=== PATIENT | female | born 1990 | race African-American/Black ===

== ENCOUNTER 2016-04-29 14:35 | Emergency (ER) | payer OTHER ==
[~2016-04-29] VITALS: Ht 175.3 cm; Wt 129.3 kg
[~2016-04-29 14:35] MED LIST: CEPH-264 PO; HYDR-971 PO; IBUP-1007 PO; NITR100C62 PO
[2016-04-29 14:43] VITALS: BP 114/59
[2016-04-29] MEDS ORDERED: D-ME118S2 PO (14:53)
--- NOTE | 2016-04-29 14:53 | PHYS DOC ---
Past Medical History Past Medical History: Cancer, Other Additional Past Medical Histor: MISCARRIAGE, DIZZINESS, BONE CA RLE Past Surgical History: No Surgical History Additional Past Surgical Histo: tumor right ankle Alcohol Use: None Drug Use: None Adult General Chief Complaint Chief Complaint: COUGH HPI HPI Patient is a 25 year old female presents emergency room with a complaint of a nonproductive cough for several weeks. Patient states that she feels trickling throat which causes her to cough. She states that she has difficulty swallowing solids such as pills even though she has no problems swallowing foods. She denies any history of cardiopulmonary disease. She is a smoker. Her daughter in the home is ill with similar symptoms but this is after she became ill. She denies any fevers or chills. Review of Systems Review of Systems Constitutional: Denies fever or chills [] Eyes: Denies change in visual acuity, redness, or eye pain [] HENT: Denies nasal congestion or sore throat [] Respiratory: Denies cough or shortness of breath [] Cardiovascular: No additional information not addressed in HPI [] GI: Denies abdominal pain, nausea, vomiting, bloody stools or diarrhea [] : Denies dysuria or hematuria [] Musculoskeletal: Denies back pain or joint pain [] Integument: Denies rash or skin lesions [] Neurologic: Denies headache, focal weakness or sensory changes [] Endocrine: Denies polyuria or polydipsia [] Allergies Allergies Allergies Coded Allergies Type Severity Reaction Last Updated Verified No Known Drug Allergies 10/14/14 No Physical Exam Physical Exam Constitutional: Well developed, well nourished, no acute distress, non-toxic appearance. [] HENT: Normocephalic, atraumatic, bilateral external ears normal, oropharynx moist, no oral exudates, scant amount of clear rhinorrhea diarrhea and bilateral naris. Posterior oropharynx is without any erythema, tonsillar swelling, peritonsillar swelling or uvular deviation. There are no exudative plaques on the tonsils. Eyes: PERRLA, EOMI, conjunctiva normal, no discharge. [] Neck: Normal range of motion, no tenderness, supple, no stridor. There are no palpable soft tissue masses. Patient is able to swallow without difficulty. Cardiovascular:Heart rate regular rhythm, no murmur [] Lungs & Thorax: Bilateral breath sounds clear to auscultation Abdomen: Bowel sounds normal, soft, no tenderness, no masses, no pulsatile masses. [] Skin: Warm, dry, no erythema, no rash. [] Back: No tenderness, no CVA tenderness. [] Extremities: No tenderness, no cyanosis, no clubbing, ROM intact, no edema. [] Neurologic: Alert and oriented X 3, normal motor function, normal sensory function, no focal deficits noted. [] Psychologic: Affect normal, judgement normal, mood normal. [] Current Patient Data Vital Signs Vital Signs Date Time Temp Pulse Resp B/P Pulse Ox O2 Delivery O2 Flow Rate FiO2 04/29/16 14:43 98.2 95 18 99 Room Air 98.2 EKG EKG [] Radiology/Procedures Radiology/Procedures [] Course & Med Decision Making Course & Med Decision Making Patient requested "liquid cough medicine" numerous times and she was adamant that she has a hard time swallowing capsules, With some pills. We discussed a short course of steroids help with inflammation. Patient declined this. Dragon Disclaimer Dragon Disclaimer This electronic medical record was generated, in whole or in part, using a voice recognition dictation system. Departure Departure Impression: Primary Impression: Cough Disposition: HOME, SELF-CARE Condition: GOOD Referrals: NO PCP (PCP) Patient Instructions: Cough, Adult, [id number] Additional Instructions: 1. As discussed, your lung sounds are clear. 2. Take the medications prescribed. 3. Review discharge instructions and review the reasons to return to the emergency department. 4. Follow-up with a primary care doctor within the next 7-10 days. Scripts D-Methorphan Hb/Prometh Hcl (Promethazine-Dm Syrup)118 Ml Syrup5 Ml PO PRN Q6HRS COUGH #120 ML Prov:JOSE ARMANDO UMAÑA 04/29/16 JOSE ARMANDO UMAÑA Apr 29, 2016 14:53
== END 2016-04-29 15:07 | disposition home or self-care (01) ==
LOC: ER 14:35
DX: R05 Cough (principal)
CPT/HCPCS: 99283

== ENCOUNTER 2017-02-28 20:19 | Emergency (ER) | payer OTHER ==
[~2017-02-28] VITALS: Ht 172.7 cm; Wt 127.0 kg
[~2017-02-28 20:19] MED LIST changes: +D-ME118S2 PO
[2017-02-28 20:27] VITALS: BP 134/74
[2017-02-28 20:54] LABS: BILIRUBIN,URINE NEGATIVE (NEG); GLUCOSE,URINE NEGATIVE (NEG); NITRITE,URINE NEGATIVE (NEG); PROTEIN,URINE NEGATIVE (NEG-TRACE)
[2017-02-28 21:00] LABS: BACTERIA,URINE MOD /HPF (0-FEW); RBC,URINE 0 /HPF (0-2); SQUAMOUS EPITHELIAL CELL,UR MANY /LPF; WBC,URINE >40 /HPF (0-4)
[2017-02-28] MEDS ORDERED: CEPH-264 PO (22:01)
[2017-02-28] MEDS ORDERED: PHEN-318 PO (22:01)
[2017-02-28] MEDS ORDERED: PHENAZOPYRIDINE 200 MG TABLET. PO ONE (22:30)
[2017-02-28] MEDS ORDERED: CEPHALEXIN 250 MG CAPSULE. PO ONE (22:30)
--- NOTE | 2017-03-01 | ED.ADGEN ---
Past Medical History Past Medical History: Cancer, Hypertension, Other Additional Past Medical Histor: MISCARRIAGE, DIZZINESS, BONE CA RLE Past Surgical History: No Surgical History Additional Past Surgical Histo: tumor right ankle Alcohol Use: None Drug Use: None Adult General Chief Complaint Chief Complaint: ABDOMINAL PAIN HPI HPI Patient is a 26 year old woman, who presents to the emergency department with a complaint of cramping in her lower abdomen, specifically on the superior region of the left hand side. Patient complains of some frequency and urgency over the past several days. She denies any discharge or drainage from the vagina , denies any concerns for STI exposures, any nausea or vomiting, states the pain does radiate slightly to the left back, denies any fevers or chills, any chest pain or shortness of breath, any injuries, any swelling extremities, any rashes, any upper respiratory symptoms. No sick contacts or exposures. No recent travel or procedures. Patient denies any similar symptoms previously. Review of Systems Review of Systems Constitutional: Denies fever or chills. [] Eyes: Denies change in visual acuity. [] HENT: Denies nasal congestion or sore throat. [] Respiratory: Denies cough or shortness of breath. [] Cardiovascular: Denies chest pain or edema. [] GI: Denies nausea, vomiting, bloody stools or diarrhea. [Complaining of cramping pain, and the lower abdomen, in the left hand side and middle pelvic region.] : Denies dysuria. [] Musculoskeletal: Denies back pain or joint pain. [] Integument: Denies rash. [] Neurologic: Denies headache, focal weakness or sensory changes. [] Endocrine: Denies polyuria or polydipsia. [] Lymphatic: Denies swollen glands. [] Psychiatric: Denies depression or anxiety. [] Current Medications Current Medications Current Medications Medications (Trade) Dose Ordered Sig/Jose Start Time Stop Time Status Last Admin Dose Admin Cephalexin HCl (Keflex) 500 mg 1X ONCE 02/28/17 22:30 02/28/17 22:30 DC Phenazopyridine HCl (Pyridium) 200 mg 1X ONCE 02/28/17 22:30 02/28/17 22:30 DC Allergies Allergies Allergies Coded Allergies Type Severity Reaction Last Updated Verified No Known Drug Allergies 10/14/14 No Physical Exam Physical Exam Constitutional: Well developed, well nourished, no acute distress, non-toxic appearance. [] HENT: Normocephalic, atraumatic, bilateral external ears normal, oropharynx moist, no oral exudates, nose normal. [] Eyes: PERRLA, EOMI, conjunctiva normal, no discharge. [] Neck: Normal range of motion, no tenderness, supple, no stridor. [] Cardiovascular:Heart rate regular rhythm, no murmur, S1, S2, no rubs or gallops. [] Lungs & Thorax: Bilateral breath sounds clear to auscultation, no wheezing, rhonchi, rales. No chest wall crepitus or tenderness. [] Abdomen: Bowel sounds normal, soft, mild tenderness palpation in the left lower abdomen, and suprapubic region, no rebound, rigidity, no guarding, no masses, no pulsatile masses. [] Skin: Warm, dry, no erythema, no rash. [] Back: No tenderness, no CVA tenderness. [] Extremities: No tenderness, no cyanosis, no clubbing, ROM intact, no edema. Negative Homans sign.[] Neurologic: Alert and oriented X 3, normal motor function, normal sensory function, no focal deficits noted. [] Psychologic: Affect normal, judgement normal, mood normal. [] Patient did decline pelvic examination. Current Patient Data Vital Signs Vital Signs Date Time Temp Pulse Resp B/P (MAP) Pulse Ox O2 Delivery O2 Flow Rate FiO2 02/28/17 20:27 98.4 65 18 134/74 (94) 98 Room Air 98.4 Lab Values Laboratory Tests Test 02/28/17 20:25 02/28/17 20:34 02/28/17 20:40 Urine Collection Type Unknown Urine Color Yellow Urine Clarity Cloudy Urine pH 6.0 Urine Specific [place] 1.025 Urine Protein Negative mg/dL (NEG-TRACE) Urine Glucose (UA) Negative mg/dL (NEG) Urine Ketones (Stick) Negative mg/dL (NEG) Urine Blood Negative (NEG) Urine Nitrite Negative (NEG) Urine Bilirubin Negative (NEG) Urine Urobilinogen Dipstick 1.0 mg/dL (0.2 mg/dL) Urine Leukocyte Esterase Moderate (NEG) Urine RBC 0 /HPF (0-2) Urine WBC >40 /HPF (0-4) Urine Squamous Epithelial Cells Many /LPF Urine Bacteria Mod /HPF (0-FEW) Urine Mucus Marked /LPF POC Urine HCG, Qualitative Hcg negative (Negative) Maternal Serum HCG Beta Subunit < 1 mIU/mL (0-5) EKG EKG Not indicated.[] Radiology/Procedures Radiology/Procedures Not indicated. Course & Med Decision Making Course & Med Decision Making Pertinent Labs and Imaging studies reviewed. (See chart for details) When I spoke to patient, I did ask if was a concern for her, patient stated that "not really". However, she did relate to the nursing staff that she had a "faint line", on a test at home, and indeed she was concerned about . I did discuss this with patient, and initially, patient was agreeable to receiving a pelvic examination, due to her location of discomfort, along with urine test. Urine test was negative. Patient then stated that she did not want to receive a pelvic examination, patient remains concerned that she is . I did order a serum test, which revealed a serum less than 1. Additionally, patient's urinalysis showed greater than 40 WBCs, although was negative for nitrates, with patient's complaint of frequency, urgency, and declining of additional evaluation at this time, I did discuss at bedside treating the patient for presumed urinary tract infection, with Pyridium, anti-inflammatory medication, and Keflex, with patient to follow-up with her [employer] and return to the ED if concerning symptoms develop. Patient was agreeable with this plan. I did order the first dose of medication be given in the emergency department, however patient did decline this with the nurse brought to bedside. Poor from nurses, states the patient stating that she needed to have some in her stomach aortic medication, but did decline crackers and juice in the emergency department. Patient has not experienced any nausea or vomiting, vital signs within normal limits, with no fever or other concerning symptoms. As as such, patient was given a prescription for Keflex, and Pyridium, with clear and detailed return instructions and precautions, discharged home in stable condition with plan as above. Dragon Disclaimer Dragon Disclaimer This electronic medical record was generated, in whole or in part, using a voice recognition dictation system. Departure Impression: Primary Impression: Urinary tract infection Disposition: HOME, SELF-CARE Condition: IMPROVED Scripts Phenazopyridine Hcl (PYRIDIUM) 200 Mg Tablet 200 MG PO PRN TID Y for BLADDER SPASM, #9 TAB Prov: JOE LAWRENCE DO 02/28/17 Cephalexin (KEFLEX) 500 Mg Capsule 1 CAP PO BID, #6 CAP Prov: JOE LAWRENCE DO 02/28/17 JOE LAWRENCE DO Mar 01, 2017 00:00
== END 2017-02-28 22:14 | disposition home or self-care (01) ==
LOC: ER 20:19
DX: N39.0 Urinary tract infection, site not specified (principal); I10 Essential (primary) hypertension
CPT/HCPCS: 36415; 81001; 81025; 84702; 99284